=== PATIENT | female | born 1990 | race Two or more races ===

== ENCOUNTER 2018-11-18 14:12 | Emergency (ER) | payer MEDICAID ==
[~2018-11-18] VITALS: Ht 162.6 cm; Wt 59.0 kg
[2018-11-18] MEDS ORDERED: PROZAC20 MG ORAL (14:25)
--- NOTE | 2018-11-18 14:30 | NUR ---
ED Nurse Note: PT WALKED IN TO ER TODAY FROM HOME. AOX4. PT C/O SWOLLEN AND ITCHY BUG BITES. MULTIPLE BUG BITES NOTED TO RIGHT BUTTOCK, RIGHT POSTERIOR THIGH, RIGHT ANKLE, RIGHT SOLE, RIGHT ARM AND LEFT ELBOW. PT STATES SHE HAS BEEN USING HYDROCORTISONE CREAM AND BENDRYL BUT WITH LITTLE RELIEF. NO ACTIVE DRAINAGE OR BLEEDING BUT SITES HOT TO TOUCH.
[2018-11-18 14:31] VITALS: BP 108/72
--- NOTE | 2018-11-18 14:48 | Emergency Room Report ---
History of Present Illness General Chief Complaint: Skin Rash/Abscess Source: Patient Present Illness HPI 28-year-old female presents to the emergency department complaining of nonpainful itchy swollen erythematous bumps on the extremities as well as the right buttock. Patient reports that lesion on the right buttock is the largest and has moderate warmth and induration. He reports her symptoms have been progressive x2 days. Pt. denies fevers, chills or swollen tender lymph nodes. Denies lesions/rashes elsewhere on the body. Denies new medications or body washes or creams. Denies swelling of the lips, tongue , throat or airway. Denies wheezing, or shortness of breath. Denies recent travel, recent illness or ill contacts. denies blisters, oral lesions, or sloughing of the skin. She has been using OTC hydrocortisone 1% and Benadryl without relief. Allergies: Coded Allergies: No Known Allergies (Unverified , 11/18/18) Patient History Past Medical History: see triage record Past Surgical History: none Pertinent Family History: none Last Menstrual Period: 10/15/2018 Now: No Immunizations: UTD Reviewed Nursing Documentation: PMH: Agreed; PSxH: Agreed Nursing Documentation-PMH Past Medical History: No Stated History History Of Psychiatric Problem: Yes - Anxiety, depression Review of Systems All Other Systems: negative except mentioned in HPI Physical Exam Vital Signs Date Time Temp Pulse Resp B/P (MAP) Pulse Ox O2 Delivery O2 Flow Rate FiO2 11/18/18 14:20 98.8 72 19 93/68 (76) 98 Room Air Sp02 EP Interpretation: reviewed, normal General Appearance: no apparent distress, alert, GCS 15, non-toxic Head: normocephalic, atraumatic Eyes: bilateral eye normal inspection, bilateral eye PERRL ENT: hearing grossly normal, normal voice Neck: full range of motion Respiratory: chest non-tender, lungs clear, normal breath sounds, no wheezing, speaking full sentences Cardiovascular #1: regular rate, rhythm, no edema, normal capillary refill Musculoskeletal: back normal, gait/station normal, normal range of motion, non- tender Neurologic: alert, oriented x3, responsive, motor strength/tone normal, sensory intact, speech normal, grossly normal Psychiatric: judgement/insight normal Skin: rash - 6 total erythematous and swollen papules on the right LE, the Right forearm and the Right buttock. The lesion on the buttock is 3cm in diameter with some mild induration and warmth, no fluctuance. no blisters or vesicles. Lymphatic: no adenopathy Medical Decision Making PA Attestation Dr. Lee is my supervising Physician whom patient management has been discussed with. Diagnostic Impression: Primary Impression: Insect bites of multiple sites, infected ER Course 28-year-old female presents to the emergency department complaining of nonpainful itchy swollen erythematous bumps on the extremities as well as the right buttock. Patient reports that lesion on the right buttock is the largest and has moderate warmth and induration. He reports her symptoms have been progressive x2 days. Pt. denies fevers, chills or swollen tender lymph nodes. Denies lesions/rashes elsewhere on the body. Denies new medications or body washes or creams. Denies swelling of the lips, tongue , throat or airway. Denies wheezing, or shortness of breath. Denies recent travel, recent illness or ill contacts. denies blisters, oral lesions, or sloughing of the skin. She has been using OTC hydrocortisone 1% and Benadryl without relief. Ddx considered but are not limited to cellulitis, scabies, insect bites, tic bites, spider bites, contact dermatitis, Drug reaction, allergic reaction, fungal infection, lice. Vital signs: are WNL, pt. is afebrile H&PE are most consistent with Multiple insect bites with localized allergic reaction. There is one lesion on the right buttock with suspicion for secondary cellulitis. No evidence of severe reaction, impending airway compromise or impending anaphylaxis. ORDERS: none required at this time, the diagnosis is clinical ED INTERVENTIONS: None required at this time. DISCHARGE: At this time pt. is stable for d/c to home. Will provide printed patient care instructions, and any necessary prescriptions. Care plan and follow up instructions have been discussed with the patient prior to discharge. Last Vital Signs Date Time Temp Pulse Resp B/P (MAP) Pulse Ox O2 Delivery O2 Flow Rate FiO2 11/18/18 14:31 98.6 74 16 108/72 98 Room Air Disposition: HOME, SELF-CARE Condition: Stable Scripts Prednisone* (PREDNISONE*) 20 Mg Tablet 40 MG ORAL DAILY for 2 Days, #4 TAB Prov: Carrol Bowman 11/18/18 Cephalexin* (KEFLEX*) 500 Mg Capsule 500 MG ORAL EVERY 12 HOURS for 7 Days, #14 CAP 0 Refills Prov: Carrol Bowman 11/18/18 Hydrocortisone 2% Cream (ANTI-ITCH 2% CREAM) Y Cr 1 APPLIC TP Q4HR, #28 GM Prov: Carrol Bowman 11/18/18 Hydroxyzine HCl (Hydroxyzine HCl) 25 Mg Tablet 25 MG ORAL FOUR TIMES A DAY for 7 Days, #28 TAB Prov: Carrol Bowman 11/18/18 Patient Instructions: DEET Insect Repellent , Insect Bite Additional Instructions: Take medications as directed. Follow up with an BODY AND FENDER MECHANIC APPRENTICE or Primary Care Provider in 3-5 days, even if your symptoms have resolved. --Please review list of primary care clinics, if you do not already have a primary care provider Return sooner to ED if new symptoms occur, or current symptoms become worse. Do not drink alcohol, drive, or operate heavy machinery while taking Hydroxyzine as this may cause drowsiness. - Please note that this Emergency Department Report was dictated using [employer] technology software, occasionally this can lead to erroneous entry secondary to interpretation by the dictation equipment. Carrol Bowman Nov 18, 2018 14:48
[2018-11-18] MEDS ORDERED: PREDNISONE20 MG ORAL (14:49)
[2018-11-18] MEDS ORDERED: ATARAX25 MG ORAL (14:49)
[2018-11-18] MEDS ORDERED: ANTI-ITCH28 G1 TP (14:49)
[2018-11-18] MEDS ORDERED: CEPHALEXIN500 MG ORAL (14:49)
--- NOTE | 2018-11-18 15:03 | NUR ---
ED Nurse Note: PT SITTING PEACEFULLY IN BED IN NAD. AOX4. PRESCRIPTIONS AND DISCHARGE PAPERWORK EXPLAINED TO PT. PT VERBALIZES UNDERSTANDING AND ALL QUESTIONS ANSWERED. PRESCRIPTIONS AND DISCHARGE PAPERWORK GIVEN TO PT AND ID WRISTBAND REMOVED. PT WALKED OUT OF ER WITH STEADY GAIT AND ALL BELONGINGS.
== END 2018-11-18 15:03 | disposition home or self-care (01) ==
LOC: EMR 14:42
DX: S30.860A Insect bite (nonvenomous) of lower back and pelvis, initial encounter (principal); S50.861A Insect bite (nonvenomous) of right forearm, initial encounter; S80.861A Insect bite (nonvenomous), right lower leg, initial encounter; L08.9 Local infection of the skin and subcutaneous tissue, unspecified; W57.XXXA Bitten or stung by nonvenomous insect and other nonvenomous arthropods, initial encounter; Y92.9 Unspecified place or not applicable
CPT/HCPCS: 99282